=== PATIENT | male | born 1940 | race Caucasian/White ===

== ENCOUNTER 2020-08-16 14:52 | Inpatient (IN) ==
[2020-08-16] MEDS ORDERED: ONDANSETRON 4 MG/2 ML VIAL IV STA (15:28)
[2020-08-16] MEDS ORDERED: MORPHINE 4 MG/1 ML VIAL IV STA (15:28)
[2020-08-16 15:37] LABS: Basophils % 0.1 % (0.0-0.8); Eosinophils % 0.1 % (0.00-10.9); Hematocrit 29.5 VOL% (42.0-52.0); Hemoglobin 8.7 GM/DL (14.0-18.0); Immature Granulocytes % 0.8 %; Immature Granulocytes Absolute 0.11 #; Lymphocytes # 0.9 10*3/uL (1.4-4.0); Lymphocytes % 6.3 % (21.2-54.2); Mean Corpuscular HGB Conc 29.5 GM/DL (32-36); Monocytes % 14.6 % (1.7-12.7); Neutrophils % 78.1 % (38.7-73.9); Platelet Count 305 T/CUMM (130-400); Red Blood Count 3.24 MC/CUMM (3.8-5.5); Red Cell Distribution Width 18.1 % (9.3-17.3); White Blood Count 14.4 T/CUMM (4-12)
[2020-08-16 15:49] LABS: Bacteria,Urine Occasional /HPF (Few); Bilirubin,Urine Negative (Negative); Blood, Urine Large mg/dL (Negative); Glucose,Urine (UA) Negative (Negative); Ketones,Urine Negative (Negative); Mucus,Urine Occasional /LPF (Occasional); Nitrite,Urine Negative (Negative); Protein,Urine Negative; RBC,Urine 172 /HPF (0-4); Urine Appearance Slightly Hazy (Clear); Urine Color Yellow (Yellow); Urine Specific Gravity 1.009 (1.001-1.035); Urine Urobilinogen < 2.0 EU/DL (0.2-1.0)
[2020-08-16 16:09] LABS: Alanine Aminotransferase 25 U/L (16-61); Alkaline Phosphatase 95 U/L (45-117); Aspartate Amino Transferase 29 U/L (0-37); Blood Urea Nitrogen 37 MG/DL (7-18); Calcium 9.7 MG/DL (8.5-10.1); Carbon Dioxide 39 MMOL/L (21-32); Estimated Glom Filtration Rate 56 ML/MIN; Glucose 134 MG/DL (74-106); Osmolality,Calculated 270.8 MOS/KG (273-304); Potassium 2.7 MMOL/L (3.5-5.1); Sodium 130 MMOL/L (136-145); Total Protein 8.1 G/DL (6.4-8.2)
[2020-08-16] MEDS ORDERED: cefTRIAXone 1,000 MG in SODIUM CHLORIDE 0.9% 100 ML IV STA (16:21)
[2020-08-16] MEDS ORDERED: SODIUM CHLORIDE 0.9% 500 ML IV STA (16:21)
[2020-08-16] MEDS ORDERED: cefTRIAXone 1,000 MG VIAL ONE (16:25)
[2020-08-16] MEDS ORDERED: GLUCAGON 1 MG VIAL IM PRN (18:24)
[2020-08-16] MEDS ORDERED: ONDANSETRON 4 MG/2 ML VIAL IV PRN (18:24)
[2020-08-16] MEDS ORDERED: DEXTROSE 50% 25 GM/50 ML VIAL IV PRN (18:24)
[2020-08-16] MEDS ORDERED: ACETAMINOPHEN 325 MG TABLET PO PRN (18:24)
[2020-08-16] MEDS: ALBUTEROL/IPRATROPIUM 3 ML NEB RESP TX SCH (19:00)
[2020-08-16] MEDS ORDERED: COLCHICINE 0.6 MG CAPSULE PO ONE ×2 (22:00→23:00)
[2020-08-16] MEDS: SODIUM CHLOR 0.9% KCL 20 MEQ 20 MEQ/1,000 ML BAG IV SCH (22:10)
[2020-08-16] MEDS: METOPROLOL TARTRATE 50 MG TABLET PO SCH (22:10)
[2020-08-16] MEDS: APIXABAN 5 MG TABLET PO SCH (22:10)
[2020-08-17] MEDS: ALBUTEROL/IPRATROPIUM 3 ML NEB RESP TX SCH ×4 (00:26→19:20)
[2020-08-17 05:23] LABS: Basophils % 0.2 % (0.0-0.8); Eosinophils % 0.1 % (0.00-10.9); Hemoglobin 7.4 GM/DL (14.0-18.0); Immature Granulocytes % 0.9 %; Immature Granulocytes Absolute 0.11 #; Lymphocytes # 0.8 10*3/uL (1.4-4.0); Lymphocytes % 6.6 % (21.2-54.2); Mean Corpuscular HGB Conc 28.5 GM/DL (32-36); Mean Corpuscular Volume 93.9 FL (87-102); Mean Platelet Volume 10.2 FL (9.6-12.0); Monocytes % 11.2 % (1.7-12.7); Platelet Count 266 T/CUMM (130-400); Red Blood Count 2.77 MC/CUMM (3.8-5.5); White Blood Count 12.5 T/CUMM (4-12)
[2020-08-17 05:52] LABS: Calcium 9.1 MG/DL (8.5-10.1); Osmolality,Calculated 279.1 MOS/KG (273-304); Potassium 2.8 MMOL/L (3.5-5.1); Risk Ratio 1.61; Thyroid Stimulating Hormone 2.52 uIU/ml (0.358-3.74)
[2020-08-17] MEDS: APIXABAN 5 MG TABLET PO SCH ×2 (08:16→21:21)
[2020-08-17] MEDS: PANTOPRAZOLE 40 MG TABLET PO SCH (09:20)
[2020-08-17] MEDS: oxyCODONE/ACETAMINOPHEN 5-325 MG TABLET PO PRN (09:20)
[2020-08-17] MEDS: METOPROLOL TARTRATE 50 MG TABLET PO SCH ×2 (09:21→21:21)
[2020-08-17] MEDS: cefTRIAXone 1,000 MG in SODIUM CHLORIDE 0.9% 100 ML IV SCH (09:21)
[2020-08-17] MEDS: SODIUM CHLOR 0.9% KCL 20 MEQ 20 MEQ/1,000 ML BAG IV SCH ×2 (09:39→16:29)
[2020-08-17] MEDS: DILTIAZEM CD 120 MG CAPSULE PO SCH (11:12)
[2020-08-17] MEDS: GABAPENTIN 600 MG TABLET PO SCH ×2 (16:28→21:21)
[2020-08-17] MEDS: ROSUVASTATIN 10 MG TABLET PO SCH (21:21)
[2020-08-17] MEDS: POTASSIUM CHLORIDE 20 MEQ TABLET PO PRN (22:20)
[2020-08-18] MEDS: ALBUTEROL/IPRATROPIUM 3 ML NEB RESP TX SCH ×4 (00:17→19:57)
[2020-08-18] MEDS: POTASSIUM CHLORIDE 20 MEQ TABLET PO PRN ×3 (00:30→05:01)
[2020-08-18] MEDS: SODIUM CHLOR 0.9% KCL 20 MEQ 20 MEQ/1,000 ML BAG IV SCH ×3 (00:35→16:04)
[2020-08-18] MEDS: DILTIAZEM CD 120 MG CAPSULE PO SCH (09:47)
[2020-08-18] MEDS: METOPROLOL TARTRATE 50 MG TABLET PO SCH ×2 (09:47→20:43)
[2020-08-18] MEDS: PANTOPRAZOLE 40 MG TABLET PO SCH (09:48)
[2020-08-18] MEDS: GABAPENTIN 600 MG TABLET PO SCH ×3 (09:48→20:43)
[2020-08-18] MEDS: allopurinoL 100 MG TABLET PO SCH ×2 (09:48→20:43)
[2020-08-18] MEDS: APIXABAN 5 MG TABLET PO SCH ×2 (09:48→20:43)
[2020-08-18] MEDS: cefTRIAXone 1,000 MG in SODIUM CHLORIDE 0.9% 100 ML IV SCH (10:02)
[2020-08-18] MEDS: ROSUVASTATIN 10 MG TABLET PO SCH (20:43)
[2020-08-19] MEDS: ALBUTEROL/IPRATROPIUM 3 ML NEB RESP TX SCH ×2 (01:05→06:54)
[2020-08-19] MEDS: SODIUM CHLOR 0.9% KCL 20 MEQ 20 MEQ/1,000 ML BAG IV SCH ×2 (02:30)
[2020-08-19 07:02] LABS: Basophils % 0.1 % (0.0-0.8); Eosinophils % 0.4 % (0.00-10.9); Hematocrit 24.9 VOL% (42.0-52.0); Hemoglobin 7.4 GM/DL (14.0-18.0); Immature Granulocytes % 0.5 %; Immature Granulocytes Absolute 0.05 #; Lymphocytes # 0.4 10*3/uL (1.4-4.0); Lymphocytes % 4.4 % (21.2-54.2); Mean Corpuscular HGB Conc 29.7 GM/DL (32-36); Mean Corpuscular Volume 91.9 FL (87-102); Mean Platelet Volume 9.8 FL (9.6-12.0); Monocytes % 10.5 % (1.7-12.7); Neutrophils % 84.1 % (38.7-73.9); Platelet Count 282 T/CUMM (130-400); Red Blood Count 2.71 MC/CUMM (3.8-5.5); Red Cell Distribution Width 18.5 % (9.3-17.3); White Blood Count 9.5 T/CUMM (4-12)
[2020-08-19 07:14] LABS: Calcium 9.2 MG/DL (8.5-10.1); Osmolality,Calculated 288.5 MOS/KG (273-304); Potassium 3.9 MMOL/L (3.5-5.1)
[2020-08-19 09:15] LABS: Hypochromasia 2+; Platelet Estimate Normal; Polychromasia Slight
[2020-08-19] MEDS: METOPROLOL TARTRATE 50 MG TABLET PO SCH ×2 (09:24→20:43)
[2020-08-19] MEDS: PANTOPRAZOLE 40 MG TABLET PO SCH (09:24)
[2020-08-19] MEDS: allopurinoL 100 MG TABLET PO SCH ×2 (09:24→20:43)
[2020-08-19] MEDS: APIXABAN 5 MG TABLET PO SCH ×2 (09:24→20:43)
[2020-08-19] MEDS: DILTIAZEM CD 120 MG CAPSULE PO SCH (09:25)
[2020-08-19] MEDS: cefTRIAXone 1,000 MG in SODIUM CHLORIDE 0.9% 100 ML IV SCH (09:25)
[2020-08-19] MEDS: GABAPENTIN 600 MG TABLET PO SCH ×3 (09:25→20:43)
[2020-08-19] MEDS ORDERED: ALBUTEROL/IPRATROPIUM 3 ML NEB RESP TX ONE (10:26)
[2020-08-19] MEDS: AZITHROMYCIN INJ 500 MG in SODIUM CHLORIDE 0.9% 250 ML IV SCH (10:56)
[2020-08-19] MEDS ORDERED: FUROSEMIDE 40 MG/4 ML VIAL IV ONE (11:44)
[2020-08-19 12:27] LABS: % Iron Saturation 6.5 % (18-50)
[2020-08-19 14:16] LABS: ABG Base Excess 8.1 MMOL/L (-2.5-2.5); ABG HCO3 31.8 MMOL/L (20-26); ABG Oxygen Saturation 91.7 % (95-100); ABG PH 7.426 (7.35-7.45); ABG PO2 65.1 MM HG (80-95); ABG TCO2 31.4 MMOL/L (23-27)
[2020-08-19] MEDS ORDERED: methylPREDNISolone SOD SUC 125 MG/2 ML VIAL IV ONE (14:27)
[2020-08-19] MEDS: LEVALBUTEROL 0.63 MG/3 ML NEB RESP TX SCH ×3 (14:30→22:56)
[2020-08-19] MEDS: ROSUVASTATIN 10 MG TABLET PO SCH (20:43)
[2020-08-20] MEDS: LEVALBUTEROL 0.63 MG/3 ML NEB RESP TX SCH ×7 (04:20→23:43)
[2020-08-20 08:31] LABS: Basophils % 0.1 % (0.0-0.8); Hematocrit 24.7 VOL% (42.0-52.0); Hemoglobin 7.4 GM/DL (14.0-18.0); Immature Granulocytes % 0.5 %; Immature Granulocytes Absolute 0.04 #; Lymphocytes # 0.3 10*3/uL (1.4-4.0); Lymphocytes % 3.6 % (21.2-54.2); Mean Corpuscular Volume 91.1 FL (87-102); Mean Platelet Volume 10.4 FL (9.6-12.0); NRBC # 0.02 10*3/uL; Neutrophils % 92.8 % (38.7-73.9); Platelet Count 299 T/CUMM (130-400); Red Blood Count 2.71 MC/CUMM (3.8-5.5); Red Cell Distribution Width 18.1 % (9.3-17.3); White Blood Count 7.8 T/CUMM (4-12)
[2020-08-20 08:35] LABS: Calcium 9.5 MG/DL (8.5-10.1); Osmolality,Calculated 295.3 MOS/KG (273-304); Potassium 3.5 MMOL/L (3.5-5.1)
[2020-08-20] MEDS: METOPROLOL TARTRATE 50 MG TABLET PO SCH ×2 (09:23→21:37)
[2020-08-20] MEDS: FUROSEMIDE 40 MG/4 ML VIAL IV SCH (09:23)
[2020-08-20] MEDS: allopurinoL 100 MG TABLET PO SCH ×2 (09:23→21:37)
[2020-08-20] MEDS: PANTOPRAZOLE 40 MG TABLET PO SCH (09:23)
[2020-08-20] MEDS: predniSONE 20 MG TABLET PO SCH (09:23)
[2020-08-20] MEDS: APIXABAN 5 MG TABLET PO SCH ×2 (09:23→21:37)
[2020-08-20] MEDS: GABAPENTIN 600 MG TABLET PO SCH ×3 (09:23→21:37)
[2020-08-20] MEDS: DILTIAZEM CD 120 MG CAPSULE PO SCH (09:23)
[2020-08-20] MEDS: cefTRIAXone 1,000 MG in SODIUM CHLORIDE 0.9% 100 ML IV SCH (09:24)
[2020-08-20 10:34] LABS: Band Neutrophils 2 % (0-10); Hypochromasia 1+; Lymphocytes 5 % (20-55); Ovalocytes Few; Platelet Estimate Normal; Polychromasia Slight; Segmented Neutrophils 89 % (50-85); Total Cells Counted 100
[2020-08-20] MEDS: AZITHROMYCIN INJ 500 MG in SODIUM CHLORIDE 0.9% 250 ML IV SCH (10:54)
[2020-08-20] MEDS: POTASSIUM CHLORIDE 20 MEQ TABLET PO SCH (21:37)
[2020-08-20] MEDS: ROSUVASTATIN 10 MG TABLET PO SCH (21:37)
[2020-08-20] MEDS: oxyCODONE/ACETAMINOPHEN 5-325 MG TABLET PO PRN (21:40)
[2020-08-21] MEDS ORDERED: VECURONIUM 10 MG VIAL IV ONE (02:10)
[2020-08-21 02:54] LABS: ABG Base Excess 7.1 MMOL/L (-2.5-2.5); ABG PH 7.464 (7.35-7.45); ABG TCO2 29.8 MMOL/L (23-27); Allen Test Positive; Pt O2 Delivery Device Ventilator
[2020-08-21 03:54] LABS: Basophils % 0.1 % (0.0-0.8); Hematocrit 24.6 VOL% (42.0-52.0); Hemoglobin 7.1 GM/DL (14.0-18.0); Immature Granulocytes % 0.6 %; Immature Granulocytes Absolute 0.08 #; Lymphocytes # 0.4 10*3/uL (1.4-4.0); Mean Corpuscular HGB Conc 28.9 GM/DL (32-36); Mean Corpuscular Volume 91.8 FL (87-102); Mean Platelet Volume 10.5 FL (9.6-12.0); Monocytes % 3.9 % (1.7-12.7); NRBC # 0.08 10*3/uL; Neutrophils % 92.4 % (38.7-73.9); Platelet Count 372 T/CUMM (130-400); Red Blood Count 2.68 MC/CUMM (3.8-5.5); Red Cell Distribution Width 18.6 % (9.3-17.3); White Blood Count 13.2 T/CUMM (4-12)
[2020-08-21 04:05] LABS: Calcium 9.3 MG/DL (8.5-10.1); Osmolality,Calculated 298.5 MOS/KG (273-304); Potassium 3.7 MMOL/L (3.5-5.1)
[2020-08-21] MEDS: LEVALBUTEROL 0.63 MG/3 ML NEB RESP TX SCH ×2 (04:06→07:06)
[2020-08-21 04:22] LABS: Band Neutrophils 3 % (0-10); Lymphocytes 2 % (20-55); Nucleated Red Blood Cells 1 (0-5); Segmented Neutrophils 91 % (50-85); Total Cells Counted 100
[2020-08-21 04:23] LABS: Hypochromasia 1+
[2020-08-21 04:24] LABS: Microcytosis 1+; Ovalocytes Slight; Polychromasia Slight
[2020-08-21] MEDS: cefTRIAXone 1,000 MG in SODIUM CHLORIDE 0.9% 100 ML IV SCH (08:10)
[2020-08-21] MEDS: FUROSEMIDE 40 MG/4 ML VIAL IV SCH (08:11)
[2020-08-21] MEDS: APIXABAN 5 MG TABLET PO SCH ×2 (08:11→21:17)
[2020-08-21] MEDS: allopurinoL 100 MG TABLET PO SCH ×2 (08:12→21:17)
[2020-08-21] MEDS: GABAPENTIN 600 MG TABLET PO SCH (08:12)
[2020-08-21] MEDS: METOPROLOL TARTRATE 50 MG TABLET PO SCH ×2 (08:12→21:17)
[2020-08-21] MEDS: DILTIAZEM CD 120 MG CAPSULE PO SCH (08:12)
[2020-08-21] MEDS: predniSONE 20 MG TABLET PO SCH (08:12)
[2020-08-21] MEDS: POTASSIUM CHLORIDE 20 MEQ TABLET PO SCH ×2 (08:12→21:17)
[2020-08-21] MEDS: PANTOPRAZOLE 40 MG VIAL IV SCH (08:14)
[2020-08-21] MEDS ORDERED: SODIUM CHLORIDE 0.9% 1,000 ML IV PRN (08:52)
[2020-08-21] MEDS: FOLIC ACID 1 MG TABLET PO SCH (09:25)
[2020-08-21] MEDS: THIAMINE 100 MG TABLET PO SCH (09:25)
[2020-08-21] MEDS: MULTIVITAMIN LIQUID (CENTRUM) 60 ML BOTTLE PO SCH (09:25)
[2020-08-21] MEDS: PIPERACILLIN/TAZOBACTAM 3,375 MG in SODIUM CHLORIDE 0.9% 100 ML IV SCH ×2 (09:27→16:09)
[2020-08-21] MEDS: AZITHROMYCIN INJ 500 MG in SODIUM CHLORIDE 0.9% 250 ML IV SCH (09:29)
[2020-08-21] MEDS: DILTIAZEM 30 MG TABLET PO SCH ×3 (10:01→21:18)
[2020-08-21] MEDS: ALBUTEROL/IPRATROPIUM 3 ML NEB RESP TX SCH ×2 (12:18→19:38)
[2020-08-21] MEDS ORDERED: DEXTROSE 50% 25 GM/50 ML VIAL IV PRN (13:33)
[2020-08-21] MEDS: BUMETANIDE 1 MG/4 ML VIAL IV SCH (16:06)
[2020-08-21] MEDS: INSULIN LISPRO 100 UNIT/ML SUBCUT SCH (18:06)
[2020-08-21] MEDS: ROSUVASTATIN 10 MG TABLET PO SCH (21:17)
[2020-08-21] MEDS: oxyCODONE/ACETAMINOPHEN 5-325 MG TABLET PO PRN (22:45)
[2020-08-22] MEDS: INSULIN LISPRO 100 UNIT/ML SUBCUT SCH ×4 (00:13→17:51)
[2020-08-22] MEDS: ALBUTEROL/IPRATROPIUM 3 ML NEB RESP TX SCH ×4 (00:48→19:16)
[2020-08-22] MEDS: PIPERACILLIN/TAZOBACTAM 3,375 MG in SODIUM CHLORIDE 0.9% 100 ML IV SCH ×3 (01:28→17:29)
[2020-08-22] MEDS: DILTIAZEM 30 MG TABLET PO SCH ×4 (02:48→20:01)
[2020-08-22 05:07] LABS: Allen Test Positive; Pt O2 Delivery Device Ventilator
[2020-08-22 05:09] LABS: ABG Base Excess 9.1 MMOL/L (-2.5-2.5); ABG HCO3 32.8 MMOL/L (20-26); ABG Oxygen Saturation 98.8 % (95-100); ABG PCO2 42.8 MM HG (35-48); ABG PH 7.499 (7.35-7.45); ABG TCO2 30.6 MMOL/L (23-27)
[2020-08-22 05:24] LABS: Basophils % 0.1 % (0.0-0.8); Hemoglobin 8.5 GM/DL (14.0-18.0); Immature Granulocytes % 0.6 %; Immature Granulocytes Absolute 0.06 #; Lymphocytes # 0.4 10*3/uL (1.4-4.0); Lymphocytes % 4.1 % (21.2-54.2); Mean Corpuscular HGB Conc 30.4 GM/DL (32-36); Mean Corpuscular Volume 88.3 FL (87-102); Mean Platelet Volume 10.1 FL (9.6-12.0); Monocytes % 5.8 % (1.7-12.7); NRBC # 0.09 10*3/uL; Neutrophils % 89.4 % (38.7-73.9); Platelet Count 334 T/CUMM (130-400); Red Blood Count 3.17 MC/CUMM (3.8-5.5); Red Cell Distribution Width 18.7 % (9.3-17.3)
[2020-08-22 05:53] LABS: Calcium 8.9 MG/DL (8.5-10.1); Osmolality,Calculated 303.3 MOS/KG (273-304); Potassium 2.9 MMOL/L (3.5-5.1)
[2020-08-22 05:56] LABS: % Iron Saturation 8.7 % (18-50); Bilirubin,Total 1.2 MG/DL (0.2-1.0); Calcium 8.7 MG/DL (8.5-10.1); Ferritin 233.7 ng/ml (26-388); Osmolality,Calculated 303.3 MOS/KG (273-304); Potassium 2.9 MMOL/L (3.5-5.1); Total Protein 6.4 G/DL (6.4-8.2)
[2020-08-22 06:07] LABS: Hypochromasia 1+; Lymphocytes 7 % (20-55); Microcytosis 1+; Nucleated Red Blood Cells 1 (0-5); Platelet Estimate Adequate; Segmented Neutrophils 86 % (50-85); Total Cells Counted 100
[2020-08-22 06:41] LABS: Folate > 24.00 NG/ML (5.38-24.0); Vitamin B12 1644 PG/ML (211-911)
[2020-08-22] MEDS: POTASSIUM CHLORIDE 20 MEQ TABLET PO PRN ×4 (06:41→13:53)
[2020-08-22] MEDS: BUMETANIDE 1 MG/4 ML VIAL IV SCH ×2 (08:08→15:19)
[2020-08-22] MEDS: PANTOPRAZOLE 40 MG VIAL IV SCH (08:10)
[2020-08-22] MEDS: chlordiazePOXIDE 25 MG CAPSULE PO SCH ×3 (08:11→19:47)
[2020-08-22] MEDS: METOPROLOL TARTRATE 50 MG TABLET PO SCH ×2 (08:11→20:01)
[2020-08-22] MEDS: THIAMINE 100 MG TABLET PO SCH (08:11)
[2020-08-22] MEDS: oxyCODONE/ACETAMINOPHEN 5-325 MG TABLET PO PRN (08:11)
[2020-08-22] MEDS: POTASSIUM CHLORIDE 20 MEQ TABLET PO SCH ×2 (08:11→20:01)
[2020-08-22] MEDS: FOLIC ACID 1 MG TABLET PO SCH (08:11)
[2020-08-22] MEDS: predniSONE 20 MG TABLET PO SCH (08:11)
[2020-08-22] MEDS: APIXABAN 5 MG TABLET PO SCH (08:12)
[2020-08-22] MEDS: allopurinoL 100 MG TABLET PO SCH ×2 (08:12→20:01)
[2020-08-22] MEDS: MULTIVITAMIN LIQUID (CENTRUM) 60 ML BOTTLE PO SCH (08:22)
[2020-08-22] MEDS: AZITHROMYCIN INJ 500 MG in SODIUM CHLORIDE 0.9% 250 ML IV SCH (09:00)
[2020-08-22] MEDS: DEXMEDETOMIDINE 200 MCG in SODIUM CHLORIDE 0.9% 48 ML IV PRN ×2 (10:21→12:47)
[2020-08-22] MEDS: ASPIRIN CHEW 81 MG TABLET PO SCH (10:53)
[2020-08-22] MEDS: DEXMEDETOMIDINE 400 MCG in SODIUM CHLORIDE 0.9% 96 ML IV PRN ×2 (15:17→20:46)
[2020-08-22] MEDS: ROSUVASTATIN 10 MG TABLET PO SCH (20:01)
[2020-08-23] MEDS: ALBUTEROL/IPRATROPIUM 3 ML NEB RESP TX SCH ×4 (00:12→18:13)
[2020-08-23] MEDS: INSULIN LISPRO 100 UNIT/ML SUBCUT SCH ×4 (00:34→18:45)
[2020-08-23] MEDS: PIPERACILLIN/TAZOBACTAM 3,375 MG in SODIUM CHLORIDE 0.9% 100 ML IV SCH ×2 (00:56→09:13)
[2020-08-23] MEDS: chlordiazePOXIDE 25 MG CAPSULE PO SCH ×4 (02:14→18:53)
[2020-08-23] MEDS: DILTIAZEM 30 MG TABLET PO SCH ×4 (02:34→20:31)
[2020-08-23] MEDS: DEXMEDETOMIDINE 400 MCG in SODIUM CHLORIDE 0.9% 96 ML IV PRN ×5 (02:50→23:32)
[2020-08-23 04:18] LABS: ABG HCO3 32.8 MMOL/L (20-26); ABG Oxygen Saturation 99.1 % (95-100); ABG PCO2 39.6 MM HG (35-48); ABG PH 7.524 (7.35-7.45); ABG TCO2 28.9 MMOL/L (23-27); Allen Test Positive; Pt O2 Delivery Device Ventilator
[2020-08-23 05:41] LABS: Hematocrit 34.3 VOL% (42.0-52.0); Hemoglobin 10.2 GM/DL (14.0-18.0); Immature Granulocytes % 0.8 %; Immature Granulocytes Absolute 0.07 #; Lymphocytes # 0.4 10*3/uL (1.4-4.0); Lymphocytes % 4.6 % (21.2-54.2); Mean Corpuscular HGB Conc 29.7 GM/DL (32-36); Mean Corpuscular Volume 91.5 FL (87-102); Mean Platelet Volume 10.7 FL (9.6-12.0); Monocytes % 5.9 % (1.7-12.7); NRBC # 0.03 10*3/uL; Neutrophils % 88.7 % (38.7-73.9); Platelet Count 384 T/CUMM (130-400); Red Blood Count 3.75 MC/CUMM (3.8-5.5); Red Cell Distribution Width 18.9 % (9.3-17.3)
[2020-08-23 06:02] LABS: Calcium 9.3 MG/DL (8.5-10.1); Osmolality,Calculated 303.7 MOS/KG (273-304); Potassium 3.9 MMOL/L (3.5-5.1)
[2020-08-23 06:07] LABS: Lymphocytes 3 % (20-55); Segmented Neutrophils 93 % (50-85); Total Cells Counted 100
[2020-08-23 06:08] LABS: Hypochromasia 1+; Microcytosis 1+; Ovalocytes Slight
[2020-08-23] MEDS: predniSONE 10 MG TABLET PO SCH (09:06)
[2020-08-23] MEDS: POTASSIUM CHLORIDE 20 MEQ TABLET PO SCH ×2 (09:06→20:30)
[2020-08-23] MEDS: THIAMINE 100 MG TABLET PO SCH (09:06)
[2020-08-23] MEDS: METOPROLOL TARTRATE 50 MG TABLET PO SCH ×2 (09:06→20:31)
[2020-08-23] MEDS: FOLIC ACID 1 MG TABLET PO SCH (09:06)
[2020-08-23] MEDS: ASPIRIN CHEW 81 MG TABLET PO SCH (09:07)
[2020-08-23] MEDS: INSULIN GLARGINE 100 UNIT/ML SUBCUT SCH (09:07)
[2020-08-23] MEDS: MULTIVITAMIN LIQUID (CENTRUM) 60 ML BOTTLE PO SCH (09:07)
[2020-08-23] MEDS: allopurinoL 100 MG TABLET PO SCH ×2 (09:07→20:30)
[2020-08-23] MEDS: BUMETANIDE 1 MG/4 ML VIAL IV SCH ×2 (09:08→17:19)
[2020-08-23] MEDS: PANTOPRAZOLE 40 MG VIAL IV SCH (09:10)
[2020-08-23] MEDS: AZITHROMYCIN INJ 500 MG in SODIUM CHLORIDE 0.9% 250 ML IV SCH (10:44)
[2020-08-23] MEDS: ENOXAPARIN 40 MG/0.4 ML SYRINGE SUBCUT SCH (11:18)
[2020-08-23] MEDS: cefTRIAXone 1,000 MG in SODIUM CHLORIDE 0.9% 100 ML IV SCH (11:18)
[2020-08-23] MEDS: ROSUVASTATIN 10 MG TABLET PO SCH (20:31)
[2020-08-24] MEDS: INSULIN LISPRO 100 UNIT/ML SUBCUT SCH ×5 (00:16→23:49)
[2020-08-24] MEDS: chlordiazePOXIDE 25 MG CAPSULE PO SCH ×4 (00:17→18:24)
[2020-08-24] MEDS: ALBUTEROL/IPRATROPIUM 3 ML NEB RESP TX SCH ×4 (01:26→19:10)
[2020-08-24] MEDS: DILTIAZEM 30 MG TABLET PO SCH ×4 (03:54→20:14)
[2020-08-24 04:01] LABS: ABG Base Excess 10.5 MMOL/L (-2.5-2.5); ABG HCO3 34.2 MMOL/L (20-26); ABG Oxygen Saturation 96.4 % (95-100); ABG PCO2 36.3 MM HG (35-48); ABG PH 7.571 (7.35-7.45); ABG PO2 74.3 MM HG (80-95); ABG TCO2 29.9 MMOL/L (23-27)
[2020-08-24] MEDS: DEXMEDETOMIDINE 400 MCG in SODIUM CHLORIDE 0.9% 96 ML IV PRN ×4 (05:18→23:05)
[2020-08-24 06:25] LABS: Calcium 9.7 MG/DL (8.5-10.1); Osmolality,Calculated 298.1 MOS/KG (273-304); Potassium 3.7 MMOL/L (3.5-5.1)
[2020-08-24 07:05] LABS: Basophils % 0.1 % (0.0-0.8); Eosinophils # 0.1 10*3/uL (0.0-0.87); Eosinophils % 0.5 % (0.00-10.9); Hematocrit 36.9 VOL% (42.0-52.0); Immature Granulocytes Absolute 0.11 #; Lymphocytes # 0.9 10*3/uL (1.4-4.0); Lymphocytes % 7.6 % (21.2-54.2); Mean Corpuscular Volume 90.4 FL (87-102); Mean Platelet Volume 10.6 FL (9.6-12.0); Monocytes % 5.2 % (1.7-12.7); NRBC # 0.03 10*3/uL; Neutrophils % 85.6 % (38.7-73.9); Platelet Count 367 T/CUMM (130-400); Red Blood Count 4.08 MC/CUMM (3.8-5.5); Red Cell Distribution Width 18.8 % (9.3-17.3); White Blood Count 11.3 T/CUMM (4-12)
[2020-08-24 07:06] LABS: Hemoglobin 10.7 GM/DL (14.0-18.0)
[2020-08-24 07:35] LABS: Hypochromasia 1+; Microcytosis 1+; Platelet Estimate Adequate
[2020-08-24 08:17] LABS: Albumin 2.3 G/DL (3.4-5.0); Total Protein 7.1 G/DL (6.4-8.2)
[2020-08-24 08:30] LABS: INR 1.1
[2020-08-24] MEDS: BUMETANIDE 1 MG/4 ML VIAL IV SCH ×2 (09:22→16:55)
[2020-08-24] MEDS: oxyCODONE/ACETAMINOPHEN 5-325 MG TABLET PO PRN (09:24)
[2020-08-24] MEDS: predniSONE 10 MG TABLET PO SCH (09:27)
[2020-08-24] MEDS: ASPIRIN CHEW 81 MG TABLET PO SCH (09:27)
[2020-08-24] MEDS: FOLIC ACID 1 MG TABLET PO SCH (09:28)
[2020-08-24] MEDS: allopurinoL 100 MG TABLET PO SCH ×2 (09:28→20:16)
[2020-08-24] MEDS: INSULIN GLARGINE 100 UNIT/ML SUBCUT SCH (09:28)
[2020-08-24] MEDS: METOPROLOL TARTRATE 50 MG TABLET PO SCH ×2 (09:28→20:16)
[2020-08-24] MEDS: THIAMINE 100 MG TABLET PO SCH (09:28)
[2020-08-24] MEDS: POTASSIUM CHLORIDE 20 MEQ TABLET PO SCH ×2 (09:28→20:16)
[2020-08-24] MEDS: MULTIVITAMIN LIQUID (CENTRUM) 60 ML BOTTLE PO SCH (09:28)
[2020-08-24] MEDS: PANTOPRAZOLE 40 MG VIAL IV SCH (09:29)
[2020-08-24] MEDS: ENOXAPARIN 40 MG/0.4 ML SYRINGE SUBCUT SCH (09:31)
[2020-08-24] MEDS: cefTRIAXone 1,000 MG in SODIUM CHLORIDE 0.9% 100 ML IV SCH (12:35)
[2020-08-24] MEDS: POTASSIUM CHLORIDE 20 MEQ TABLET PO PRN (12:36)
[2020-08-24 14:54] LABS: ABG Base Excess 6.1 MMOL/L (-2.5-2.5); ABG HCO3 31.4 MMOL/L (20-26); ABG Oxygen Saturation 96.4 % (95-100); ABG PCO2 48.8 MM HG (35-48); ABG PH 7.426 (7.35-7.45); ABG PO2 89.7 MM HG (80-95); ABG TCO2 32.9 MMOL/L (23-27); Allen Test Positive; Pt O2 Delivery Device Ventilator
[2020-08-24 16:17] LABS: Glucose,Pleural Fluid 222 MG/DL; LDH,Body Fluid 162 U/L; Total Protein,Body Fluid 3.4 G/DL
[2020-08-24 18:01] LABS: Lymphocytes,Pleural Fluid 37 %; Monocytes,Pleural Fluid 27 %; Neutrophils,Pleural Fluid 36 %; RBC,Pleural Fluid 1021 T/CUMM
[2020-08-24] MEDS: ROSUVASTATIN 10 MG TABLET PO SCH (20:16)
[2020-08-25] MEDS: ALBUTEROL/IPRATROPIUM 3 ML NEB RESP TX SCH ×4 (01:15→19:23)
[2020-08-25] MEDS: chlordiazePOXIDE 25 MG CAPSULE PO SCH ×5 (01:25→21:08)
[2020-08-25] MEDS: DILTIAZEM 30 MG TABLET PO SCH ×4 (02:35→21:08)
[2020-08-25 04:08] LABS: ABG Base Excess 9.4 MMOL/L (-2.5-2.5); ABG HCO3 33.1 MMOL/L (20-26); ABG Oxygen Saturation 97.9 % (95-100); ABG PCO2 39.8 MM HG (35-48); ABG PH 7.527 (7.35-7.45); ABG PO2 90.9 MM HG (80-95); ABG TCO2 29.6 MMOL/L (23-27)
[2020-08-25] MEDS: DEXMEDETOMIDINE 400 MCG in SODIUM CHLORIDE 0.9% 96 ML IV PRN (04:57)
[2020-08-25 05:58] LABS: Basophils % 0.2 % (0.0-0.8); Eosinophils % 0.2 % (0.00-10.9); Hematocrit 35.9 VOL% (42.0-52.0); Hemoglobin 10.9 GM/DL (14.0-18.0); Immature Granulocytes % 1.1 %; Immature Granulocytes Absolute 0.14 #; Lymphocytes % 7.5 % (21.2-54.2); Mean Corpuscular HGB Conc 30.4 GM/DL (32-36); Mean Platelet Volume 10.7 FL (9.6-12.0); Platelet Count 387 T/CUMM (130-400); Red Blood Count 3.99 MC/CUMM (3.8-5.5); Red Cell Distribution Width 19.2 % (9.3-17.3); White Blood Count 12.6 T/CUMM (4-12)
[2020-08-25] MEDS: INSULIN LISPRO 100 UNIT/ML SUBCUT SCH ×3 (06:01→19:15)
[2020-08-25 06:20] LABS: Albumin 2.3 G/DL (3.4-5.0); Bilirubin,Total 0.6 MG/DL (0.2-1.0); Calcium 9.6 MG/DL (8.5-10.1); Osmolality,Calculated 298.4 MOS/KG (273-304); Total Protein 6.9 G/DL (6.4-8.2)
[2020-08-25] MEDS: POTASSIUM CHLORIDE 20 MEQ TABLET PO SCH ×2 (08:51→21:09)
[2020-08-25] MEDS: THIAMINE 100 MG TABLET PO SCH (08:51)
[2020-08-25] MEDS: lisinopriL 2.5 MG TABLET PO SCH (08:52)
[2020-08-25] MEDS: ASPIRIN CHEW 81 MG TABLET PO SCH (08:52)
[2020-08-25] MEDS: allopurinoL 100 MG TABLET PO SCH ×2 (08:52→21:09)
[2020-08-25] MEDS: FOLIC ACID 1 MG TABLET PO SCH (08:52)
[2020-08-25] MEDS: predniSONE 10 MG TABLET PO SCH (08:52)
[2020-08-25] MEDS: PANTOPRAZOLE 40 MG VIAL IV SCH (08:53)
[2020-08-25] MEDS: MULTIVITAMIN LIQUID (CENTRUM) 60 ML BOTTLE PO SCH (10:06)
[2020-08-25] MEDS: APIXABAN 5 MG TABLET PO SCH ×2 (10:06→21:09)
[2020-08-25] MEDS: INSULIN GLARGINE 100 UNIT/ML SUBCUT SCH (10:06)
[2020-08-25] MEDS: BUMETANIDE 1 MG/4 ML VIAL IV SCH ×2 (10:06→17:10)
[2020-08-25] MEDS: METOPROLOL TARTRATE 50 MG TABLET PO SCH ×3 (10:07→22:15)
[2020-08-25] MEDS: cefTRIAXone 1,000 MG in SODIUM CHLORIDE 0.9% 100 ML IV SCH (10:07)
[2020-08-25] MEDS: ROSUVASTATIN 10 MG TABLET PO SCH (21:09)
[2020-08-26] MEDS: ALBUTEROL/IPRATROPIUM 3 ML NEB RESP TX SCH ×4 (01:20→20:00)
[2020-08-26] MEDS: chlordiazePOXIDE 25 MG CAPSULE PO SCH ×2 (01:50→07:12)
[2020-08-26] MEDS: DILTIAZEM 30 MG TABLET PO SCH ×4 (03:01→21:37)
[2020-08-26 04:44] LABS: ABG Base Excess 9.7 MMOL/L (-2.5-2.5); ABG HCO3 33.4 MMOL/L (20-26); ABG Oxygen Saturation 96.7 % (95-100); ABG PCO2 51.6 MM HG (35-48); ABG PH 7.445 (7.35-7.45); ABG TCO2 31.5 MMOL/L (23-27); Allen Test Positive
[2020-08-26 06:17] LABS: Albumin 2.4 G/DL (3.4-5.0); Bilirubin,Total 0.6 MG/DL (0.2-1.0); Calcium 9.9 MG/DL (8.5-10.1); Osmolality,Calculated 301.7 MOS/KG (273-304); Potassium 3.8 MMOL/L (3.5-5.1); Total Protein 6.9 G/DL (6.4-8.2)
[2020-08-26 06:48] LABS: Basophils % 0.2 % (0.0-0.8); Eosinophils # 0.1 10*3/uL (0.0-0.87); Eosinophils % 0.7 % (0.00-10.9); Hematocrit 38.1 VOL% (42.0-52.0); Immature Granulocytes % 0.9 %; Immature Granulocytes Absolute 0.12 #; Lymphocytes # 1.2 10*3/uL (1.4-4.0); Lymphocytes % 9.5 % (21.2-54.2); Mean Corpuscular HGB Conc 29.9 GM/DL (32-36); Mean Corpuscular Volume 90.7 FL (87-102); Monocytes % 7.3 % (1.7-12.7); Neutrophils % 81.4 % (38.7-73.9); Platelet Count 415 T/CUMM (130-400); Red Cell Distribution Width 19.2 % (9.3-17.3); White Blood Count 13.1 T/CUMM (4-12)
[2020-08-26 07:07] LABS: Hemoglobin 11.4 GM/DL (14.0-18.0)
[2020-08-26] MEDS: INSULIN LISPRO 100 UNIT/ML SUBCUT SCH ×4 (07:11→18:26)
[2020-08-26] MEDS ORDERED: chlordiazePOXIDE 25 MG CAPSULE PO SCH (08:00)
[2020-08-26] MEDS: BUMETANIDE 1 MG/4 ML VIAL IV SCH ×2 (09:24→18:47)
[2020-08-26] MEDS: METOPROLOL TARTRATE 50 MG TABLET PO SCH (09:25)
[2020-08-26] MEDS: APIXABAN 5 MG TABLET PO SCH ×2 (09:25→21:38)
[2020-08-26] MEDS: lisinopriL 2.5 MG TABLET PO SCH (09:25)
[2020-08-26] MEDS: predniSONE 20 MG TABLET PO SCH (09:26)
[2020-08-26] MEDS: MULTIVITAMIN LIQUID (CENTRUM) 60 ML BOTTLE PO SCH (09:26)
[2020-08-26] MEDS: THIAMINE 100 MG TABLET PO SCH (09:26)
[2020-08-26] MEDS: allopurinoL 100 MG TABLET PO SCH ×2 (09:26→21:36)
[2020-08-26] MEDS: FOLIC ACID 1 MG TABLET PO SCH (09:26)
[2020-08-26] MEDS: POTASSIUM CHLORIDE 20 MEQ TABLET PO SCH ×2 (09:26→21:38)
[2020-08-26] MEDS: ASPIRIN CHEW 81 MG TABLET PO SCH (09:26)
[2020-08-26] MEDS ORDERED: chlordiazePOXIDE 25 MG CAPSULE PO PRN (09:38)
[2020-08-26] MEDS ORDERED: METOPROLOL TARTRATE 25 MG TABLET PO SCH (21:00)
[2020-08-26] MEDS: ROSUVASTATIN 10 MG TABLET PO SCH (21:38)
[2020-08-27] MEDS: ALBUTEROL/IPRATROPIUM 3 ML NEB RESP TX SCH ×4 (00:17→19:33)
[2020-08-27] MEDS: INSULIN LISPRO 100 UNIT/ML SUBCUT SCH ×4 (00:47→18:13)
[2020-08-27] MEDS: DILTIAZEM 30 MG TABLET PO SCH (02:12)
[2020-08-27] MEDS ORDERED: METOPROLOL TARTRATE 5 MG/5 ML VIAL IV ONE (08:38)
[2020-08-27] MEDS: THIAMINE 100 MG TABLET PO SCH (08:56)
[2020-08-27] MEDS: allopurinoL 100 MG TABLET PO SCH ×2 (08:56→20:54)
[2020-08-27] MEDS: MULTIVITAMIN LIQUID (CENTRUM) 60 ML BOTTLE PO SCH (08:56)
[2020-08-27] MEDS: POTASSIUM CHLORIDE 20 MEQ TABLET PO SCH ×2 (08:56→20:55)
[2020-08-27] MEDS: carvediloL 3.125 MG TABLET PO SCH ×2 (08:56→16:52)
[2020-08-27] MEDS: ASPIRIN CHEW 81 MG TABLET PO SCH (08:56)
[2020-08-27] MEDS: predniSONE 20 MG TABLET PO SCH (08:57)
[2020-08-27] MEDS: FOLIC ACID 1 MG TABLET PO SCH (08:57)
[2020-08-27] MEDS: APIXABAN 5 MG TABLET PO SCH ×2 (08:57→20:55)
[2020-08-27] MEDS ORDERED: DILTIAZEM CD 120 MG CAPSULE PO SCH (09:00)
[2020-08-27] MEDS ORDERED: DILTIAZEM 50 MG/10 ML VIAL IV ONE (10:00)
[2020-08-27] MEDS: BUMETANIDE 1 MG/4 ML VIAL IV SCH ×2 (10:29→17:01)
[2020-08-27] MEDS ORDERED: DILTIAZEM 25 MG/5 ML VIAL IV ONE (10:30)
[2020-08-27] MEDS: MORPHINE 4 MG/1 ML VIAL IV PRN ×2 (15:34→20:06)
[2020-08-27] MEDS ORDERED: LORazepam 2 MG/1 ML VIAL IV ONE (16:04)
[2020-08-27] MEDS ORDERED: MORPHINE 4 MG/1 ML VIAL IV STA (16:05)
[2020-08-27] MEDS: ROSUVASTATIN 10 MG TABLET PO SCH (20:54)
[2020-08-28] MEDS: ALBUTEROL/IPRATROPIUM 3 ML NEB RESP TX SCH (00:45)
[2020-08-28 01:32] VITALS: BP 52/37
[2020-08-28] MEDS: INSULIN LISPRO 100 UNIT/ML SUBCUT SCH (01:33)
== END 2020-08-28 02:11 | disposition expired | DRG 207 ==
LOC: N.EDINP 14:52 → N.ED 14:52 → SUATTDRO 18:40 → N.EDINP 21:21 → N.3E 21:30 → SUATTDRO 08-20 14:42 → N.3E 08-21 01:51 → N.ICU 08-21 02:11 → N.4E 08-26 16:09
PROVIDERS: ADMIT Internal Medicine; ATTEND Internal Medicine